=== PATIENT | male | born 1955 | race Caucasian/White ===

== ENCOUNTER 2017-10-26 08:33 | Inpatient (IN) | payer OTHER ==
[2017-10-26] MEDS: CEFAZOLIN 2 GM/50 ML (PMX) 50 ML IVPB (06:30)
[2017-10-26] MEDS: TRANEXAMIC ACID 1,000 MG in NS 100 ML INTRA-OP X1 IVPB (06:30)
[2017-10-26] MEDS: TRANEXAMIC ACID 1,000 MG in NS 100 ML PRE-OP X1 IVPB (06:30)
[~2017-10-26 08:33] MED LIST: SUCCINYLCHOLINE CHLORIDE 100 MG/5 ML SYG IV
[2017-10-26] MEDS: ACETAMINOPHEN 1000MG/100ML IV 100 ML IVPB (09:54)
[2017-10-26] MEDS: oxyCODONE (CR) 10 MG TAB [oxyCONTIN] PO (09:55)
[2017-10-26] MEDS: LANSOPRAZOLE 30 MG CAP PO (09:56)
[2017-10-26] MEDS: ONDANSETRON 4 MG INJ IV ×3 (09:57→20:50)
[2017-10-26] MEDS: LACTATED RINGER'S 1,000 ML IV* ×2 (09:58→14:30)
[2017-10-26] MEDS: DEXAMETHASONE 4 MG/ML 1 ML INJ IV (09:59)
[2017-10-26] MEDS ORDERED: ETOMIDATE 20 MG INJ (10:05)
[2017-10-26] MEDS ORDERED: ROCURONIUM 50 MG INJ ×2 (10:05→11:40)
[2017-10-26] MEDS ORDERED: LIDOCAINE 2% (SDV) 5 ML INJ (10:05)
[2017-10-26] MEDS ORDERED: morphine SULFATE/PF (10 MG/10 ML) INJ (10:06)
[2017-10-26] MEDS ORDERED: MIDAZOLAM 1 MG/ML 2 ML INJ (10:06)
[2017-10-26] MEDS ORDERED: POLYMYXIN B 500000 UNIT INJ (10:47)
[2017-10-26] MEDS ORDERED: POLYMYXIN/BACITRACIN 1L IRRIG (10:48)
[2017-10-26] MEDS ORDERED: BACITRACIN 50000 UNITS INJ (10:49)
[2017-10-26] MEDS: BACITRACIN 50000 UNITS INJ IRR (11:01)
[2017-10-26] MEDS: POLYMYXIN B 500000 UNIT INJ IRR (11:01)
[2017-10-26] MEDS: POLYMYXIN/BACITRACIN 1L IRRIG IRR (11:01)
[2017-10-26] MEDS: HIP PAIN COCKTAIL (CEFUROXIME) INJ (11:01)
[2017-10-26] MEDS ORDERED: BUPIVACAINE 0.75%/DEXT (SPINAL) 2 ML INJ (11:05)
[2017-10-26] MEDS ORDERED: CEFAZOLIN 1 GM INJ (11:31)
[2017-10-26] MEDS ORDERED: FAMOTIDINE 20 MG INJ (11:43)
[2017-10-26] MEDS ORDERED: ONDANSETRON 4 MG INJ (11:43)
[2017-10-26] MEDS ORDERED: DEXAMETHASONE 4 MG/ML 1 ML INJ (11:43)
[2017-10-26] MEDS ORDERED: SUGAMMADEX SODIUM 200 MG/2 ML VIAL IV (13:53)
[2017-10-26] MEDS ORDERED: KETOROLAC 30 MG INJ IV (14:00)
[2017-10-26] MEDS ORDERED: ONDANSETRON 4 MG INJ IV (14:00)
[2017-10-26] MEDS ORDERED: HYDROmorphONE 0.5 MG/0.5 ML SYG IV ×2 (14:00)
[2017-10-26] MEDS ORDERED: NALBUPHINE HCL (10 MG/1 ML) INJ IV (14:00)
[2017-10-26] MEDS ORDERED: DIPHENHYDRAMINE 50 MG INJ IV ×2 (14:00→14:30)
[2017-10-26] MEDS ORDERED: NALOXONE (0.4 MG/ML) INJ IV ×2 (14:00→14:30)
[2017-10-26] MEDS ORDERED: ZOLPIDEM 5 MG TAB PO ×2 (14:00→14:30)
[2017-10-26] MEDS: SOD CHLORIDE 0.9% 1,000 ML IV ×2 (14:02→20:49)
[2017-10-26] MEDS ORDERED: oxyCODONE 5 MG TAB PO (14:30)
[2017-10-26] MEDS ORDERED: NACL 0.9% 3 ML SYG IV (14:30)
[2017-10-26] MEDS ORDERED: BISACODYL 10 MG SUPP PR (14:30)
[2017-10-26] MEDS ORDERED: MAGNESIUM HYDROXIDE 30ML CUP PO (14:30)
[2017-10-26] MEDS ORDERED: NA PHOSPHATE/BIPHOS 133 ML ENEMA PR (14:30)
[2017-10-26] MEDS ORDERED: TRIMETHOBENZAMIDE 100 MG/ML VIAL IM (14:30)
[2017-10-26] MEDS: CEFAZOLIN 1 GM/50 ML (PMX) 50 ML IVPB ×2 (15:01→22:14)
[2017-10-26] MEDS: DOCUSATE SODIUM 100 MG CAP PO (15:01)
[2017-10-26] MEDS: ASPIRIN (EC) 325 MG TAB PO ×2 (15:02→20:46)
[2017-10-26] MEDS: GABAPENTIN 100 MG CAP PO (20:47)
[2017-10-27] MEDS: ONDANSETRON 4 MG INJ IV ×2 (02:30→08:29)
[2017-10-27 05:20] LABS: ADD MAN DIFF? NO
[2017-10-27 05:27] LABS: BASOPHILS % 0.1 % (0.0-2.0); HEMATOCRIT 23.3 % (42.0-52.0); HEMOGLOBIN 7.8 g/dl (14.0-18.0); LYMPHOCYTES # 1.5 10^3/ul (0.8-2.9); MEAN CORPUSCULAR HEMOGLOBIN 30.1 pg (29.0-33.0); MEAN CORPUSCULAR HGB CONC 33.5 g/dl (32.0-37.0); MEAN PLATELET VOLUME 10.2 fl (7.4-10.4); MONOCYTE # 0.9 10^3/ul (0.3-0.9); MONOCYTES % 8.5 % (0.0-11.0); NEUTROPHIL # 8.2 10^3/ul (1.6-7.5); NEUTROPHILS % 76.9 % (39.0-77.0); PLATELET COUNT 260 10^3/UL (140-415); RED BLOOD COUNT 2.59 10^6/ul (4.70-6.10); RED CELL DISTRIBUTION WIDTH 12.8 % (11.5-14.5)
[2017-10-27 05:27] LABS: WHITE BLOOD COUNT 10.7 10^3/ul (4.8-10.8)
[2017-10-27 05:51] LABS: ANION GAP 12 (8-16); BLOOD UREA NITROGEN 15 mg/dl (7-20); CARBON DIOXIDE 23 mmol/L (21-31); CHLORIDE 107 mmol/L (97-110); CREATININE 0.78 mg/dl (0.61-1.24); GLUCOSE 111 mg/dl (70-220); POTASSIUM 4.3 mmol/L (3.5-5.1); SODIUM 138 mmol/L (135-144)
[2017-10-27] MEDS: PANTOPRAZOLE (EC) 40 MG TAB PO (06:10)
[2017-10-27] MEDS: CEFAZOLIN 1 GM/50 ML (PMX) 50 ML IVPB (06:11)
[2017-10-27 06:41] LABS: ADD UMIC NO; UR ASCORBIC ACID NEGATIVE (NEGATIVE); UR BILIRUBIN (Dip) NEGATIVE (NEGATIVE); UR BLOOD (Dip) NEGATIVE (NEGATIVE); UR CLARITY CLEAR (CLEAR); UR COLOR YELLOW (YELLOW); UR GLUCOSE (Dip) NEGATIVE (NEGATIVE); UR KETONES (Dip) NEGATIVE (NEGATIVE); UR LEUKOCYTE ESTERASE (Dip) NEGATIVE Leu/ul (NEGATIVE); UR NITRITE (Dip) NEGATIVE (NEGATIVE); UR SPECIFIC GRAVITY (Dip) 1.024 (1.003-1.030); UR TOTAL PROTEIN (Dip) NEGATIVE (NEGATIVE); UR UROBILINOGEN (Dip) NEGATIVE (NEGATIVE)
[2017-10-27] MEDS: DOCUSATE SODIUM 100 MG CAP PO ×2 (08:28→20:43)
[2017-10-27] MEDS: GABAPENTIN 100 MG CAP PO ×2 (08:29→20:43)
[2017-10-27] MEDS: FERROUS FUMARATE (SR) TAB PO ×2 (08:29→20:43)
[2017-10-27] MEDS: CELECOXIB 200 MG CAP PO ×2 (08:29→20:43)
[2017-10-27] MEDS: ASPIRIN (EC) 325 MG TAB PO ×2 (08:29→20:43)
[2017-10-27] MEDS: ENOXAPARIN 40 MG/0.4 ML SYG SC (08:33)
[2017-10-27 09:55] LABS: CHOLESTEROL 169 mg/dl (100-200)
[2017-10-27 09:55] LABS: CHOL/HDL RATIO 3.5 RATIO; HDL CHOLESTEROL 48 mg/dl (30-78); LDL CHOLESTEROL,CALCULATED 104 mg/dl; TRIGLYCERIDES 86 mg/dl (0-149)
[2017-10-27 10:21] LABS: HEMOGLOBIN A1C 5.7 % (0-5.9)
[2017-10-27] MEDS: BETHANECHOL 25 MG TAB PO ×2 (12:57→16:22)
[2017-10-27] MEDS: oxyCODONE 5 MG TAB PO ×4 (13:04→20:42)
[2017-10-27] MEDS: SOD CHLORIDE 0.9% 1,000 ML IV (15:02)
[2017-10-28] MEDS: SOD CHLORIDE 0.9% 1,000 ML IV ×3 (02:00→21:13)
[2017-10-28 05:28] LABS: ADD MAN DIFF? NO
[2017-10-28 05:39] LABS: BASOPHILS % 0.3 % (0.0-2.0); EOSINOPHILS # 0.1 10^3/ul (0.0-0.5); EOSINOPHILS % 0.9 % (0.0-7.0); HEMATOCRIT 22.6 % (42.0-52.0); HEMOGLOBIN 7.6 g/dl (14.0-18.0); LYMPHOCYTES # 2.3 10^3/ul (0.8-2.9); MEAN CORPUSCULAR HEMOGLOBIN 30.5 pg (29.0-33.0); MEAN CORPUSCULAR HGB CONC 33.6 g/dl (32.0-37.0); MEAN CORPUSCULAR VOLUME 90.8 fl (82.0-101.0); MEAN PLATELET VOLUME 10.5 fl (7.4-10.4); MONOCYTE # 0.8 10^3/ul (0.3-0.9); MONOCYTES % 10.3 % (0.0-11.0); NEUTROPHIL # 4.7 10^3/ul (1.6-7.5); NEUTROPHILS % 59.2 % (39.0-77.0); PLATELET COUNT 242 10^3/UL (140-415); RED BLOOD COUNT 2.49 10^6/ul (4.70-6.10); RED CELL DISTRIBUTION WIDTH 12.8 % (11.5-14.5)
[2017-10-28 05:39] LABS: WHITE BLOOD COUNT 7.9 10^3/ul (4.8-10.8)
[2017-10-28] MEDS: oxyCODONE 5 MG TAB PO ×5 (05:47→20:08)
[2017-10-28] MEDS: PANTOPRAZOLE (EC) 40 MG TAB PO (05:47)
[2017-10-28 06:41] LABS: ANION GAP 14 (8-16); BLOOD UREA NITROGEN 15 mg/dl (7-20); CALCIUM 8.1 mg/dl (8.4-10.2); CARBON DIOXIDE 27 mmol/L (21-31); CHLORIDE 105 mmol/L (97-110); CREATININE 0.86 mg/dl (0.61-1.24); GLUCOSE 103 mg/dl (70-220); POTASSIUM 4.6 mmol/L (3.5-5.1); SODIUM 141 mmol/L (135-144)
[2017-10-28] MEDS: FERROUS FUMARATE (SR) TAB PO ×2 (09:18→20:10)
[2017-10-28] MEDS: DOCUSATE SODIUM 100 MG CAP PO ×2 (09:19→20:10)
[2017-10-28] MEDS: ASPIRIN (EC) 325 MG TAB PO (09:19)
[2017-10-28] MEDS: GABAPENTIN 100 MG CAP PO ×2 (09:19→20:10)
[2017-10-28] MEDS: CELECOXIB 200 MG CAP PO ×2 (09:20→20:10)
[2017-10-28] MEDS: ENOXAPARIN 40 MG/0.4 ML SYG SC (09:29)
[2017-10-28] MEDS: APIXABAN 5 MG TABLET PO ×2 (12:00→20:11)
[2017-10-29 05:14] LABS: ADD MAN DIFF? NO
[2017-10-29 05:19] LABS: WHITE BLOOD COUNT 8.1 10^3/ul (4.8-10.8)
[2017-10-29 05:19] LABS: BASOPHILS % 0.5 % (0.0-2.0); EOSINOPHILS # 0.2 10^3/ul (0.0-0.5); EOSINOPHILS % 2.5 % (0.0-7.0); HEMATOCRIT 22.9 % (42.0-52.0); HEMOGLOBIN 7.6 g/dl (14.0-18.0); LYMPHOCYTES # 2.3 10^3/ul (0.8-2.9); MEAN CORPUSCULAR HEMOGLOBIN 30.2 pg (29.0-33.0); MEAN CORPUSCULAR HGB CONC 33.2 g/dl (32.0-37.0); MEAN CORPUSCULAR VOLUME 90.9 fl (82.0-101.0); MEAN PLATELET VOLUME 10.4 fl (7.4-10.4); MONOCYTE # 0.7 10^3/ul (0.3-0.9); MONOCYTES % 8.2 % (0.0-11.0); NEUTROPHIL # 4.9 10^3/ul (1.6-7.5); NEUTROPHILS % 60.4 % (39.0-77.0); PLATELET COUNT 252 10^3/UL (140-415); RED BLOOD COUNT 2.52 10^6/ul (4.70-6.10); RED CELL DISTRIBUTION WIDTH 12.8 % (11.5-14.5)
[2017-10-29] MEDS: PANTOPRAZOLE (EC) 40 MG TAB PO (05:43)
[2017-10-29] MEDS: oxyCODONE 5 MG TAB PO ×4 (05:43→16:47)
[2017-10-29 05:47] LABS: ANION GAP 12 (8-16); BLOOD UREA NITROGEN 13 mg/dl (7-20); CALCIUM 8.2 mg/dl (8.4-10.2); CARBON DIOXIDE 28 mmol/L (21-31); CHLORIDE 104 mmol/L (97-110); CREATININE 0.86 mg/dl (0.61-1.24); GLUCOSE 104 mg/dl (70-220); POTASSIUM 4.1 mmol/L (3.5-5.1); SODIUM 140 mmol/L (135-144)
[2017-10-29] MEDS: APIXABAN 5 MG TABLET PO ×2 (09:01→20:53)
[2017-10-29] MEDS: DOCUSATE SODIUM 100 MG CAP PO ×2 (09:01→20:52)
[2017-10-29] MEDS: CELECOXIB 200 MG CAP PO ×2 (09:01→20:52)
[2017-10-29] MEDS: FERROUS FUMARATE (SR) TAB PO ×2 (09:01→20:53)
[2017-10-29] MEDS: GABAPENTIN 100 MG CAP PO ×2 (09:01→20:53)
[2017-10-29] MEDS: SOD CHLORIDE 0.9% 1,000 ML IV (16:47)
[2017-10-30] MEDS: SOD CHLORIDE 0.9% 1,000 ML IV ×2 (04:34→17:33)
[2017-10-30 04:57] LABS: ADD MAN DIFF? NO
[2017-10-30 05:03] LABS: WHITE BLOOD COUNT 8.2 10^3/ul (4.8-10.8)
[2017-10-30 05:03] LABS: BASOPHILS % 0.4 % (0.0-2.0); EOSINOPHILS # 0.3 10^3/ul (0.0-0.5); EOSINOPHILS % 3.9 % (0.0-7.0); HEMATOCRIT 22.7 % (42.0-52.0); HEMOGLOBIN 7.6 g/dl (14.0-18.0); LYMPHOCYTES # 1.9 10^3/ul (0.8-2.9); LYMPHOCYTES % 23.4 % (15.0-51.0); MEAN CORPUSCULAR HEMOGLOBIN 30.4 pg (29.0-33.0); MEAN CORPUSCULAR HGB CONC 33.5 g/dl (32.0-37.0); MEAN CORPUSCULAR VOLUME 90.8 fl (82.0-101.0); MEAN PLATELET VOLUME 10.5 fl (7.4-10.4); MONOCYTE # 0.7 10^3/ul (0.3-0.9); MONOCYTES % 8.6 % (0.0-11.0); NEUTROPHIL # 5.2 10^3/ul (1.6-7.5); NEUTROPHILS % 63.3 % (39.0-77.0); PLATELET COUNT 292 10^3/UL (140-415); RED CELL DISTRIBUTION WIDTH 12.8 % (11.5-14.5)
[2017-10-30 05:18] LABS: ANION GAP 15 (8-16); BLOOD UREA NITROGEN 15 mg/dl (7-20); CALCIUM 8.4 mg/dl (8.4-10.2); CARBON DIOXIDE 26 mmol/L (21-31); CHLORIDE 107 mmol/L (97-110); CREATININE 0.81 mg/dl (0.61-1.24); GLUCOSE 114 mg/dl (70-220); POTASSIUM 4.6 mmol/L (3.5-5.1); SODIUM 143 mmol/L (135-144)
[2017-10-30] MEDS: PANTOPRAZOLE (EC) 40 MG TAB PO (05:42)
[2017-10-30] MEDS: oxyCODONE 5 MG TAB PO ×4 (05:45→20:33)
[2017-10-30] MEDS: SENNA/DOCUSATE NA (8.6MG/50MG) TAB PO ×2 (08:52→20:41)
[2017-10-30] MEDS: APIXABAN 5 MG TABLET PO ×2 (08:52→20:33)
[2017-10-30] MEDS: GABAPENTIN 100 MG CAP PO ×2 (08:52→20:33)
[2017-10-30] MEDS: FERROUS FUMARATE (SR) TAB PO ×2 (08:52→20:33)
[2017-10-30] MEDS: CELECOXIB 200 MG CAP PO ×2 (08:52→20:33)
[2017-10-31] MEDS: PANTOPRAZOLE (EC) 40 MG TAB PO (05:28)
[2017-10-31] MEDS: oxyCODONE 5 MG TAB PO ×3 (05:28→17:54)
[2017-10-31] MEDS: SOD CHLORIDE 0.9% 1,000 ML IV ×2 (06:32→16:22)
[2017-10-31] MEDS: FERROUS FUMARATE (SR) TAB PO ×2 (08:46→20:25)
[2017-10-31] MEDS: APIXABAN 5 MG TABLET PO ×2 (08:46→20:26)
[2017-10-31] MEDS: CELECOXIB 200 MG CAP PO ×2 (08:46→20:26)
[2017-10-31] MEDS: GABAPENTIN 100 MG CAP PO ×2 (08:46→20:25)
[2017-10-31] MEDS: SENNA/DOCUSATE NA (8.6MG/50MG) TAB PO ×2 (08:50→20:28)
[2017-10-31 10:00] LABS: ADD MAN DIFF? NO
[2017-10-31 10:02] LABS: WHITE BLOOD COUNT 10.1 10^3/ul (4.8-10.8)
[2017-10-31 10:02] LABS: BASOPHIL # 0.1 10^3/ul (0.0-0.1); BASOPHILS % 0.5 % (0.0-2.0); EOSINOPHILS # 0.3 10^3/ul (0.0-0.5); EOSINOPHILS % 3.2 % (0.0-7.0); HEMATOCRIT 25.6 % (42.0-52.0); HEMOGLOBIN 8.5 g/dl (14.0-18.0); LYMPHOCYTES % 19.8 % (15.0-51.0); MEAN CORPUSCULAR HEMOGLOBIN 30.4 pg (29.0-33.0); MEAN CORPUSCULAR HGB CONC 33.2 g/dl (32.0-37.0); MEAN CORPUSCULAR VOLUME 91.4 fl (82.0-101.0); MEAN PLATELET VOLUME 9.5 fl (7.4-10.4); MONOCYTE # 0.7 10^3/ul (0.3-0.9); MONOCYTES % 6.4 % (0.0-11.0); NEUTROPHILS % 69.7 % (39.0-77.0); PLATELET COUNT 400 10^3/UL (140-415); RED CELL DISTRIBUTION WIDTH 12.7 % (11.5-14.5)
[2017-10-31 10:23] LABS: ANION GAP 16 (8-16); BLOOD UREA NITROGEN 14 mg/dl (7-20); CALCIUM 8.8 mg/dl (8.4-10.2); CARBON DIOXIDE 26 mmol/L (21-31); CHLORIDE 105 mmol/L (97-110); CREATININE 0.86 mg/dl (0.61-1.24); GLUCOSE 134 mg/dl (70-220); POTASSIUM 4.7 mmol/L (3.5-5.1); SODIUM 142 mmol/L (135-144)
[2017-11-01] MEDS: oxyCODONE 5 MG TAB PO ×4 (02:27→21:00)
[2017-11-01] MEDS: PANTOPRAZOLE (EC) 40 MG TAB PO (05:22)
[2017-11-01 05:55] LABS: ADD MAN DIFF? NO
[2017-11-01 06:02] LABS: WHITE BLOOD COUNT 9.1 10^3/ul (4.8-10.8)
[2017-11-01 06:02] LABS: BASOPHILS % 0.4 % (0.0-2.0); EOSINOPHILS # 0.4 10^3/ul (0.0-0.5); EOSINOPHILS % 4.2 % (0.0-7.0); HEMATOCRIT 24.5 % (42.0-52.0); HEMOGLOBIN 8.2 g/dl (14.0-18.0); LYMPHOCYTES # 2.2 10^3/ul (0.8-2.9); LYMPHOCYTES % 24.2 % (15.0-51.0); MEAN CORPUSCULAR HEMOGLOBIN 30.4 pg (29.0-33.0); MEAN CORPUSCULAR HGB CONC 33.5 g/dl (32.0-37.0); MEAN CORPUSCULAR VOLUME 90.7 fl (82.0-101.0); MEAN PLATELET VOLUME 10.2 fl (7.4-10.4); MONOCYTE # 0.8 10^3/ul (0.3-0.9); MONOCYTES % 8.3 % (0.0-11.0); NEUTROPHIL # 5.7 10^3/ul (1.6-7.5); NEUTROPHILS % 62.6 % (39.0-77.0); PLATELET COUNT 430 10^3/UL (140-415); RED CELL DISTRIBUTION WIDTH 12.7 % (11.5-14.5)
[2017-11-01 06:23] LABS: ANION GAP 14 (8-16); BLOOD UREA NITROGEN 19 mg/dl (7-20); CALCIUM 8.8 mg/dl (8.4-10.2); CARBON DIOXIDE 26 mmol/L (21-31); CHLORIDE 105 mmol/L (97-110); CREATININE 0.87 mg/dl (0.61-1.24); GLUCOSE 101 mg/dl (70-220); POTASSIUM 4.4 mmol/L (3.5-5.1); SODIUM 141 mmol/L (135-144)
[2017-11-01] MEDS: SOD CHLORIDE 0.9% 1,000 ML IV ×2 (07:28→20:02)
[2017-11-01] MEDS: APIXABAN 5 MG TABLET PO ×2 (08:20→21:02)
[2017-11-01] MEDS: SENNA/DOCUSATE NA (8.6MG/50MG) TAB PO (08:20)
[2017-11-01] MEDS: FERROUS FUMARATE (SR) TAB PO ×2 (08:20→21:01)
[2017-11-01] MEDS: GABAPENTIN 100 MG CAP PO ×2 (08:20→21:02)
[2017-11-01] MEDS: CELECOXIB 200 MG CAP PO ×2 (08:20→21:02)
[2017-11-02 05:11] LABS: ADD MAN DIFF? NO
[2017-11-02 05:12] LABS: WHITE BLOOD COUNT 8.2 10^3/ul (4.8-10.8)
[2017-11-02 05:12] LABS: BASOPHIL # 0.1 10^3/ul (0.0-0.1); BASOPHILS % 0.7 % (0.0-2.0); EOSINOPHILS # 0.4 10^3/ul (0.0-0.5); EOSINOPHILS % 5.4 % (0.0-7.0); HEMATOCRIT 24.3 % (42.0-52.0); HEMOGLOBIN 7.9 g/dl (14.0-18.0); LYMPHOCYTES # 2.3 10^3/ul (0.8-2.9); LYMPHOCYTES % 28.3 % (15.0-51.0); MEAN CORPUSCULAR HEMOGLOBIN 29.8 pg (29.0-33.0); MEAN CORPUSCULAR HGB CONC 32.5 g/dl (32.0-37.0); MEAN CORPUSCULAR VOLUME 91.7 fl (82.0-101.0); MEAN PLATELET VOLUME 9.6 fl (7.4-10.4); MONOCYTE # 0.8 10^3/ul (0.3-0.9); MONOCYTES % 9.2 % (0.0-11.0); NEUTROPHIL # 4.6 10^3/ul (1.6-7.5); NEUTROPHILS % 55.9 % (39.0-77.0); PLATELET COUNT 469 10^3/UL (140-415); RED BLOOD COUNT 2.65 10^6/ul (4.70-6.10); RED CELL DISTRIBUTION WIDTH 12.9 % (11.5-14.5)
[2017-11-02 05:46] LABS: ANION GAP 15 (8-16); BLOOD UREA NITROGEN 20 mg/dl (7-20); CALCIUM 8.9 mg/dl (8.4-10.2); CARBON DIOXIDE 27 mmol/L (21-31); CHLORIDE 105 mmol/L (97-110); CREATININE 0.92 mg/dl (0.61-1.24); GLUCOSE 101 mg/dl (70-220); POTASSIUM 4.5 mmol/L (3.5-5.1); SODIUM 142 mmol/L (135-144)
[2017-11-02] MEDS: oxyCODONE 5 MG TAB PO ×2 (06:01→10:53)
[2017-11-02] MEDS: PANTOPRAZOLE (EC) 40 MG TAB PO (06:02)
[2017-11-02] MEDS: APIXABAN 5 MG TABLET PO (08:17)
[2017-11-02] MEDS: GABAPENTIN 100 MG CAP PO (08:18)
[2017-11-02] MEDS: FERROUS FUMARATE (SR) TAB PO (08:18)
[2017-11-02] MEDS: CELECOXIB 200 MG CAP PO (08:18)
[2017-11-02] MEDS: SENNA/DOCUSATE NA (8.6MG/50MG) TAB PO (08:25)
[2017-11-02] MEDS: SOD CHLORIDE 0.9% 1,000 ML IV (08:27)
== END 2017-11-02 14:18 | disposition home health service (06) | DRG 470 ==
LOC: REC 08:33 → MS1 15:43
PROC: 0SR904A Replacement of Right Hip Joint with Ceramic on Polyethylene Synthetic Substitute, Uncemented, Open Approach (ICD-10-PCS; principal; 2017-10-26 11:00)
PROC: 8E0YXBZ Computer Assisted Procedure of Lower Extremity (ICD-10-PCS; 2017-10-26 11:00)
DX: M16.11 Unilateral primary osteoarthritis, right hip (principal); I82.412 Acute embolism and thrombosis of left femoral vein; I82.432 Acute embolism and thrombosis of left popliteal vein; E78.5 Hyperlipidemia, unspecified; E66.9 Obesity, unspecified; D64.9 Anemia, unspecified; Z87.891 Personal history of nicotine dependence
CPT/HCPCS: 71045; 72170; 73500; 73530; 80048; 80061; 81003; 83036; 85025; 86850; 86900; 86901; 86920; 87081; 87086; 88304; 88311; 93971; 97110; 97116; 97162; 97165; 97530

== ENCOUNTER 2018-03-15 05:28 | Inpatient (IN) | payer OTHER ==
[2018-03-15] MEDS: HIP PAIN COCKTAIL (CEFUROXIME) INJ ×2 (06:00→08:31)
[2018-03-15] MEDS: oxyCODONE (CR) 10 MG TAB [oxyCONTIN] PO (06:28)
[2018-03-15] MEDS: ACETAMINOPHEN 1000MG/100ML IV 100 ML IVPB (06:29)
[2018-03-15] MEDS: ONDANSETRON 4 MG INJ IV ×4 (06:30→19:30)
[2018-03-15] MEDS: DEXAMETHASONE 4 MG/ML 1 ML INJ IV (06:30)
[2018-03-15] MEDS: LACTATED RINGER'S 1,000 ML IV* (06:31)
[2018-03-15] MEDS: LANSOPRAZOLE 30 MG CAP PO (06:42)
[2018-03-15] MEDS: TRANEXAMIC ACID 1,000 MG in NS 100 ML PRE-OP X1 IVPB (07:26)
[2018-03-15] MEDS ORDERED: MAGNESIUM HYDROXIDE 30ML CUP PO (07:30)
[2018-03-15] MEDS ORDERED: NACL 0.9% 3 ML SYG IV (07:30)
[2018-03-15] MEDS ORDERED: SENNA/DOCUSATE NA (8.6MG/50MG) TAB PO (07:30)
[2018-03-15] MEDS ORDERED: BISACODYL 10 MG SUPP PR (07:30)
[2018-03-15] MEDS ORDERED: NALOXONE (0.4 MG/ML) INJ IV (07:30)
[2018-03-15] MEDS ORDERED: MIDAZOLAM 1 MG/ML 2 ML INJ (07:30)
[2018-03-15] MEDS ORDERED: NA PHOSPHATE/BIPHOS 133 ML ENEMA PR (07:30)
[2018-03-15] MEDS ORDERED: oxyCODONE 5 MG TAB PO (07:30)
[2018-03-15] MEDS ORDERED: DIPHENHYDRAMINE 50 MG INJ IV ×2 (07:30→08:30)
[2018-03-15] MEDS ORDERED: morphine SULFATE/PF (10 MG/10 ML) INJ (07:31)
[2018-03-15] MEDS ORDERED: METOCLOPRAMIDE 10 MG INJ (07:31)
[2018-03-15] MEDS ORDERED: BUPIVACAINE 0.75%/DEXT (SPINAL) 2 ML INJ (07:31)
[2018-03-15] MEDS ORDERED: DEXAMETHASONE 4 MG/ML 1 ML INJ (07:53)
[2018-03-15] MEDS ORDERED: CEFAZOLIN 1 GM INJ (07:54)
[2018-03-15] MEDS: CEFAZOLIN 2 GM/50 ML (PMX) 50 ML IVPB (07:54)
[2018-03-15] MEDS ORDERED: ROCURONIUM 50 MG INJ (07:55)
[2018-03-15] MEDS ORDERED: PROPOFOL 20 ML (07:55)
[2018-03-15] MEDS ORDERED: MEPERIDINE 25 MG INJ IV (08:30)
[2018-03-15] MEDS ORDERED: LABETALOL HCL 20MG INJ IV ×2 (08:30→10:00)
[2018-03-15] MEDS ORDERED: hydrALAzine 20 MG INJ IV (08:30)
[2018-03-15] MEDS ORDERED: HYDROmorphONE 1 MG/5 ML IV SYRINGE IV ×3 (08:30)
[2018-03-15] MEDS ORDERED: EPHEDrine SULFATE 50 MG/5 ML SYG IV (08:30)
[2018-03-15] MEDS ORDERED: ONDANSETRON 4 MG INJ IV (08:30)
[2018-03-15] MEDS: BACITRACIN 50000 UNITS INJ IRR (08:31)
[2018-03-15] MEDS: POLYMYXIN B 500000 UNIT INJ (08:31)
[2018-03-15] MEDS ORDERED: EPHEDrine SULFATE 50 MG/5 ML SYG (09:26)
[2018-03-15] MEDS ORDERED: ROPIVACAINE 0.5 % 30 ML VIAL (09:27)
[2018-03-15] MEDS ORDERED: NEOSTIGMINE 3 MG/3 ML SYRINGE (09:37)
[2018-03-15] MEDS ORDERED: KETOROLAC 30 MG INJ (09:37)
[2018-03-15] MEDS ORDERED: GLYCOPYRROLATE 0.4 MG INJ (09:37)
[2018-03-15] MEDS: TRANEXAMIC ACID 1,000 MG in NS 100 ML INTRA-OP X1 IVPB ×2 (10:00)
[2018-03-15] MEDS: CEFAZOLIN 1 GM/50 ML (PMX) 50 ML IVPB ×4 (10:30→19:50)
[2018-03-15] MEDS: DOCUSATE SODIUM 100 MG CAP PO (10:31)
[2018-03-15] MEDS: GABAPENTIN 100 MG CAP PO ×2 (13:18→21:24)
[2018-03-15] MEDS: SOD CHLORIDE 0.9% 1,000 ML IV ×2 (13:23→19:51)
[2018-03-16] MEDS: ONDANSETRON 4 MG INJ IV (01:24)
[2018-03-16] MEDS: CEFAZOLIN 1 GM/50 ML (PMX) 50 ML IVPB (02:50)
[2018-03-16] MEDS: SOD CHLORIDE 0.9% 1,000 ML IV (04:37)
[2018-03-16 05:05] LABS: ADD MAN DIFF? NO
[2018-03-16 05:09] LABS: WHITE BLOOD COUNT 10.8 10^3/ul (4.8-10.8)
[2018-03-16 05:09] LABS: BASOPHILS % 0.1 % (0.0-2.0); EOSINOPHILS % 0.2 % (0.0-7.0); HEMATOCRIT 27.2 % (42.0-52.0); LYMPHOCYTES # 1.6 10^3/ul (0.8-2.9); LYMPHOCYTES % 14.4 % (15.0-51.0); MEAN CORPUSCULAR HGB CONC 33.1 g/dl (32.0-37.0); MEAN CORPUSCULAR VOLUME 90.7 fl (82.0-101.0); MONOCYTE # 0.9 10^3/ul (0.3-0.9); MONOCYTES % 8.3 % (0.0-11.0); NEUTROPHIL # 8.3 10^3/ul (1.6-7.5); NEUTROPHILS % 76.5 % (39.0-77.0); PLATELET COUNT 273 10^3/UL (140-415); RED CELL DISTRIBUTION WIDTH 12.4 % (11.5-14.5)
[2018-03-16 05:27] LABS: HEMOGLOBIN A1C 6.1 % (0-5.9)
[2018-03-16 05:32] LABS: ANION GAP 13 (8-16); BLOOD UREA NITROGEN 17 mg/dl (7-20); CALCIUM 8.1 mg/dl (8.4-10.2); CARBON DIOXIDE 23 mmol/L (21-31); CHLORIDE 107 mmol/L (97-110); CREATININE 0.82 mg/dl (0.61-1.24); GLUCOSE 140 mg/dl (70-220); INR 0.97; SODIUM 139 mmol/L (135-144)
[2018-03-16 05:38] LABS: CHOL/HDL RATIO 3.4 RATIO; CHOLESTEROL 150 mg/dl (100-200); HDL CHOLESTEROL 44 mg/dl (30-78); LDL CHOLESTEROL,CALCULATED 91 mg/dl; MAGNESIUM 1.8 mg/dl (1.7-2.5); TRIGLYCERIDES 77 mg/dl (0-149)
[2018-03-16 05:38] LABS: PHOSPHORUS 3.2 mg/dl (2.5-4.9)
[2018-03-16] MEDS: PANTOPRAZOLE (EC) 40 MG TAB PO (06:26)
[2018-03-16] MEDS: oxyCODONE 5 MG TAB PO ×6 (06:47→20:38)
[2018-03-16] MEDS: BETHANECHOL 25 MG TAB PO (09:15)
[2018-03-16] MEDS: GABAPENTIN 100 MG CAP PO ×2 (09:15→20:39)
[2018-03-16] MEDS: DOCUSATE SODIUM 100 MG CAP PO ×2 (09:15→20:38)
[2018-03-16] MEDS: FERROUS FUMARATE (SR) TAB PO ×2 (09:15→20:39)
[2018-03-16] MEDS: CELECOXIB 200 MG CAP PO ×2 (09:15→20:39)
[2018-03-16] MEDS: APIXABAN 5 MG TABLET PO ×2 (09:16→20:39)
[2018-03-17 05:11] LABS: ADD MAN DIFF? NO
[2018-03-17 05:19] LABS: WHITE BLOOD COUNT 9.2 10^3/ul (4.8-10.8)
[2018-03-17 05:19] LABS: BASOPHILS % 0.4 % (0.0-2.0); EOSINOPHILS # 0.1 10^3/ul (0.0-0.5); EOSINOPHILS % 1.5 % (0.0-7.0); HEMATOCRIT 28.6 % (42.0-52.0); HEMOGLOBIN 9.3 g/dl (14.0-18.0); LYMPHOCYTES # 3.3 10^3/ul (0.8-2.9); LYMPHOCYTES % 35.7 % (15.0-51.0); MEAN CORPUSCULAR HEMOGLOBIN 30.1 pg (29.0-33.0); MEAN CORPUSCULAR HGB CONC 32.5 g/dl (32.0-37.0); MEAN CORPUSCULAR VOLUME 92.6 fl (82.0-101.0); MEAN PLATELET VOLUME 10.3 fl (7.4-10.4); MONOCYTE # 0.9 10^3/ul (0.3-0.9); MONOCYTES % 10.2 % (0.0-11.0); NEUTROPHIL # 4.8 10^3/ul (1.6-7.5); PLATELET COUNT 276 10^3/UL (140-415); RED BLOOD COUNT 3.09 10^6/ul (4.70-6.10); RED CELL DISTRIBUTION WIDTH 13.2 % (11.5-14.5)
[2018-03-17 05:34] LABS: INR 1.02; PROTIME 13.5 Sec (11.9-14.9); PT RATIO 1.1
[2018-03-17 05:55] LABS: ANION GAP 10 (8-16); BLOOD UREA NITROGEN 14 mg/dl (7-20); CALCIUM 8.1 mg/dl (8.4-10.2); CARBON DIOXIDE 26 mmol/L (21-31); CHLORIDE 107 mmol/L (97-110); GLUCOSE 111 mg/dl (70-220); POTASSIUM 3.9 mmol/L (3.5-5.1); SODIUM 139 mmol/L (135-144)
[2018-03-17] MEDS: PANTOPRAZOLE (EC) 40 MG TAB PO (06:08)
[2018-03-17] MEDS: oxyCODONE 5 MG TAB PO ×3 (06:09→12:51)
[2018-03-17] MEDS: GABAPENTIN 100 MG CAP PO (08:15)
[2018-03-17] MEDS: FERROUS FUMARATE (SR) TAB PO (08:15)
[2018-03-17] MEDS: CELECOXIB 200 MG CAP PO (08:15)
[2018-03-17] MEDS: APIXABAN 5 MG TABLET PO (08:15)
[2018-03-17] MEDS: DOCUSATE SODIUM 100 MG CAP PO (08:15)
== END 2018-03-17 14:00 | disposition home health service (06) | DRG 470 ==
LOC: REC 05:28 → MS1 17:55
PROC: 0SRB04A Replacement of Left Hip Joint with Ceramic on Polyethylene Synthetic Substitute, Uncemented, Open Approach (ICD-10-PCS; principal; 2018-03-15 07:26)
PROC: 8E0YXBZ Computer Assisted Procedure of Lower Extremity (ICD-10-PCS; 2018-03-15 07:26)
DX: M16.12 Unilateral primary osteoarthritis, left hip (principal); I82.512 Chronic embolism and thrombosis of left femoral vein; I82.532 Chronic embolism and thrombosis of left popliteal vein; R73.03 Prediabetes; D64.9 Anemia, unspecified; E78.5 Hyperlipidemia, unspecified; E66.9 Obesity, unspecified; Z68.30 Body mass index [BMI] 30.0-30.9, adult; Z79.01 Long term (current) use of anticoagulants
CPT/HCPCS: 72170; 73500; 73530; 80048; 80061; 83036; 83735; 84100; 85025; 85610; 87081; 87086; 88304; 88311; 97110; 97116; 97162; 97166; 97530